=== PATIENT | female | born 1985 | race Caucasian/White ===

== ENCOUNTER → 2016-09-02 | Outpatient (REF) | payer OTHER | LOC: M LAB REF 17:08 | PROVIDERS: ATTEND Advanced Practice Midwife | DX: Z34.82 Encounter for supervision of other normal pregnancy, second trimester (principal) ==

== ENCOUNTER → 2016-09-16 | Outpatient (CLI) | payer OTHER ==
--- NOTE | 2016-09-17 03:09 | REP ---
Clinical: Anatomical evaluation. Comparison: None . Findings: Examination demonstrates a single live intrauterine in the cephalic presentation. motion is identified by technologist. Placenta is noted posteriorly and grade zero without evidence for placenta previa or abruption. Amniotic fluid volume is normal. Cervix measures 2.8 cm in length on Valsalva and appears closed. No evidence for nuchal cord. Gestational age by LMP 18 weeks 6 days with CATHY 02/11/2017 . Gestational age by current measurements 19 weeks 1 day with CATHY 02/09/2017 . FHR equals 160 beats per minute. BPD 4.3 cm 19 weeks 0 days HC 16.5 cm 19 weeks 1 day AC 14.4 cm 19 weeks 5 days FL 3.0 cm 19 weeks 1 day HL 2.9 cm 19 weeks 3 days HC/AC ratio 1.14 Estimated weight 291 grams ( 66th percentile). Anatomical assessment demonstrates normal structures including cranium, choroid plexus, cavum, cerebellum/posterior fossa, facial features, lungs, four-chamber heart/ventricular outflow tracts, diaphragm, stomach, cord insertion/three-vessel cord, kidneys/bladder, spine, and extremities. Impression: 1. Single live intrauterine in cephalic presentation demonstrating appropriate interval growth. 2. Anatomical assessment is complete and normal. 3. Cervix measures 2.8 cm in length on Valsalva. Signed by Elpidio Manrique MD 09/17/2016 03:02 A
== END ==
LOC: M SMT 11:40
PROVIDERS: ATTEND Advanced Practice Midwife
DX: Z34.82 Encounter for supervision of other normal pregnancy, second trimester (principal)

== ENCOUNTER → 2016-11-10 | Outpatient (CLI) | payer OTHER ==
[~2016-11-10] MED LIST: ACET50TA PO; IBUP-1114 PO; PREN1PAK PO
[2016-11-10 13:17] LABS: MEAN CORPUSCULAR HEMOGLOBIN 35.1 pg (27.0-33.0); MEAN CORPUSCULAR HGB CONC 34.1 g/dl (32.0-36.5); MEAN CORPUSCULAR VOLUME 102.8 fl (80.0-96.0); RED CELL DISTRIBUTION WIDTH 15.1 % (11.5-14.5); WHITE BLOOD COUNT 9.6 K/mm3 (4.0-10.0)
== END ==
LOC: M SMT 08:57
PROVIDERS: ATTEND Advanced Practice Midwife
DX: Z34.82 Encounter for supervision of other normal pregnancy, second trimester (principal)

== ENCOUNTER → 2016-11-24 | Outpatient (CLI) | payer OTHER | LOC: M LAB 06:49 | PROVIDERS: ATTEND Advanced Practice Midwife | DX: Z34.82 Encounter for supervision of other normal pregnancy, second trimester (principal) ==

== ENCOUNTER → 2017-01-13 | Outpatient (REF) | payer OTHER | LOC: M LAB REF 16:45 | PROVIDERS: ATTEND Obstetrics & Gynecology | DX: Z34.83 Encounter for supervision of other normal pregnancy, third trimester (principal) ==

== ENCOUNTER 2017-02-06 15:28 | Inpatient (IN) | payer OTHER ==
[2017-02-06] VITALS (20 sets, daily range): BP systolic 116–189; BP diastolic 55–90
[~2017-02-06 15:28] MED LIST changes: -ACET50TA PO; -IBUP-1114 PO
[2017-02-06 18:20] LABS: MEAN CORPUSCULAR HEMOGLOBIN 34.1 pg (27.0-33.0); MEAN CORPUSCULAR VOLUME 100.3 fl (80.0-96.0); PLATELET COUNT, AUTOMATED 132 10^3/uL (150-450); RED CELL DISTRIBUTION WIDTH 15.9 % (11.5-14.5); WHITE BLOOD COUNT 10.1 10^3/uL (4.0-10.0)
[2017-02-06 18:51] LABS: ALT/SGPT 13 U/L (12-78); AST/SGOT 18 U/L (15-37); BILIRUBIN,TOTAL 0.6 MG/DL (0.2-1.0); CREATININE FOR GFR 0.47 MG/DL (0.55-1.02); GLOMERULAR FILTRATION RATE > 60.0 (>60); URIC ACID 4.7 MG/DL (2.6-6.0)
[2017-02-06] MEDS ORDERED: FENTANYL 2MCG/ML ROPIVACAINE 0.2% IN 0.9% NACL 200ML IVBAG As Ordered ONE (21:07)
[2017-02-06] MEDS ORDERED: EPIDURAL COMMENT XX SCH (22:15)
[2017-02-06] MEDS ORDERED: LACTATED RINGER'S 1000 ML IV PRN (22:15)
[2017-02-06] MEDS ORDERED: REFRIGERATOR IV KEYS XX PRN (22:15)
[2017-02-06] MEDS ORDERED: ONDANSETRON 4MG/2ML VIAL (J2405) IV PRN (22:15)
[2017-02-06] MEDS ORDERED: NALOXONE INJ 0.4 MG/1 ML VIAL (J2310) IV PRN (22:15)
[2017-02-06] MEDS ORDERED: FENTANYL/ROPIVACAINE/NACL BAG 200 ML EPIDURAL SCH (22:15)
[2017-02-06] MEDS ORDERED: ePHEDrine SULFATE 25 MG/5 ML(5MG/ML) SYRINGE IV PRN (22:15)
[2017-02-06] MEDS ORDERED: diphenhydrAMINE INJ 50MG/ML VIAL (J1200) IV PRN (22:15)
[2017-02-06] MEDS ORDERED: EPIDURAL/PCA KEYS XX PRN (22:15)
[2017-02-06] MEDS ORDERED: OXYTOCIN 30 UNITS IN 0.9% NaCl 500ML IV BAG (J2590) As Ordered ONE (23:36)
--- NOTE | 2017-02-06 23:37 | HPE ---
DATE OF ADMISSION: 02/06/2017 REASON FOR ADMISSION: Labor. HISTORY OF PRESENT ILLNESS: Ms. Avilez is a 31-year-old 3, para 1, who presents at 39 weeks 3 days estimated gestational age by her last menstrual period confirmed by a first trimester ultrasound with complaints of contractions. She reports contractions that started throughout the day that have increased in frequency and intensity. She denies any vaginal bleeding. No leakage of fluid. She reports active movement. Her course has been unremarkable. She initiated care in her first trimester and has been appropriate throughout. PAST MEDICAL HISTORY: None. PAST SURGICAL HISTORY: 1. She has had a loop electrosurgical excisional procedure (LEEP). 2. Appendectomy. 3. Oral surgery. 4. Cholecystectomy. PAST OBSTETRICAL HISTORY: She is a 3, para 1. She has had one term vaginal delivery. She has proven to 7 pounds 6 ounces. MEDICATIONS: Include vitamins. ALLERGIES: She has no known drug allergies. SOCIAL HISTORY: She denies any alcohol, tobacco, or drug use during her . PHYSICAL EXAMINATION: VITAL SIGNS: Stable. She is afebrile. She has a category 1 heart rate tracing. GENERAL APPEARANCE: Well-appearing in no acute distress. LUNGS: Clear to auscultation bilaterally. CARDIOVASCULAR: Heart is regular rate and rhythm. ABDOMEN: Soft, gravid, nontender. Estimated weight (EFW) 3400 grams. CERVICAL EXAM: She is 4 cm dilated, bulging bag of membranes, 90% effaced. LABORATORIES: Her blood type is B positive. Antibody screen is negative. Rubella is immune. RPR is nonreactive. Hepatitis surface antigen is negative. HIV is negative. Hepatitis C is nonreactive. Chlamydia and gonorrhea screens are negative. She had an elevated 1-hour Glucola of 169, but a normal 3-hour glucose tolerance test. She is group B Streptococcus (GBS) negative. ASSESSMENT: 1. Ms. Avilez is a 31-year-old 3, para 1 at 39 weeks 3 days estimated gestational age here in labor. 2. Reassuring status. PLAN: 1. Admit to labor and delivery. Complete blood count (CBC), RPR, type and screen. 2. Patient is a good candidate for an epidural. 3. I have discussed medication and procedures in labor and delivery. The patient has also been verbally consented for emergency surgery, blood products, anesthesia and desires to proceed with admission. 4. Anticipate spontaneous vaginal delivery.
[2017-02-07] MEDS ORDERED: OXYTOCIN DRIP 30 UNITS in APPROPRIATE DILUENT 1 EA IV SCH (00:39)
[2017-02-07] MEDS ORDERED: METHYLERGONOVINE MALEATE 0.2 MG TAB PO PRN (00:45)
[2017-02-07] MEDS ORDERED: MOM 30ML SUSPENSION UDC PO PRN (00:45)
[2017-02-07] MEDS ORDERED: ACETAMINOPHEN 500 MG TAB PO PRN (00:45)
[2017-02-07] MEDS ORDERED: MEASLES,MUMPS,RUBELLA VACCINE INJ (MMR-II) (90707) SC SCH (00:45)
[2017-02-07] MEDS ORDERED: DOCUSATE SODIUM 100 MG CAP PO PRN (00:45)
[2017-02-07] MEDS ORDERED: DIBUCAINE 1% OINTMENT 30GM TOP PRN (00:45)
[2017-02-07] MEDS ORDERED: ANUSOL HC CREAM 30GM TOP PRN (00:45)
[2017-02-07] MEDS ORDERED: RHOGAM 300 MCG (1500 IU) INJ (J2790) IM SCH (00:45)
--- NOTE | 2017-02-07 01:06 | DN ---
DATE OF DELIVERY: 02/07/2017 TIME OF : 001 GENDER: Male. SCORES: 9 and 10. WEIGHT: 7 pounds 15 ounces or 3600 grams. ANESTHESIA: Epidural. LACERATIONS: Second-degree midline laceration. ESTIMATED BLOOD LOSS: 300 mL. COUNTS: 5 laparotomy sponges accounted for prior to and after delivery. One sharp removed from the delivery field. DELIVERY NOTE: On 02/07/2017, at 0011, Mrs. Avilez, a 31-year-old 3, now para 2 had a spontaneous vaginal delivery of a liveborn male infant, scores 9 and 10, weight was 3600 grams or 7 pounds 15 ounces. Head was delivered occiput anterior (OA) followed by delivery of right anterior shoulder, left posterior shoulder and corpus. Infant was handed to mother with a good cry. Cord was clamped times two, was cut by the father of the baby under my direction. Cord blood was then obtained. Placenta was then drained and delivered grossly intact. A premixed bag of 500 mL of normal saline with 30 units of Pitocin was then bolused along with uterine massage until the uterus was firm. Upon inspection, there was a second-degree midline laceration, which was repaired with 3-0 Vicryl Rapide. On re-inspection, cervix, vagina, and perineum were grossly intact and hemostatic. Mother and baby recovered in stable condition. The couple has decided to name their son Ehsan.
[2017-02-07 03:40] VITALS: BP 128/69
[2017-02-07 06:00] VITALS: BP 117/58
[2017-02-07] MEDS: PRENATAL VITAMINS CHEWABLE TABLET PO SCH (08:25)
[2017-02-07] MEDS: IBUPROFEN 800 MG TAB PO PRN (15:22)
[2017-02-07 18:14] VITALS: BP 115/56
[2017-02-08 06:00] VITALS: BP 118/59
[2017-02-08] MEDS: PRENATAL VITAMINS CHEWABLE TABLET PO SCH (08:59)
[2017-02-08] MEDS: IBUPROFEN 800 MG TAB PO PRN (09:00)
[2017-02-08] MEDS ORDERED: ACET50TA PO (16:57)
[2017-02-08] MEDS ORDERED: IBUP-1114 PO (16:57)
== END 2017-02-08 18:20 | disposition home or self-care (01) | DRG 775 ==
LOC: M LDO 15:28 → M LDI 16:25 → M OBS 02-07 03:40
PROVIDERS: ADMIT Obstetrics & Gynecology; ATTEND Obstetrics & Gynecology
PROC: 10E0XZZ Delivery of Products of Conception, External Approach (ICD-10-PCS; principal; 2017-02-07)
PROC: 0KQM0ZZ Repair Perineum Muscle, Open Approach (ICD-10-PCS; 2017-02-07)
DX: O70.1 Second degree perineal laceration during delivery (principal); Z37.0 Single live birth; Z3A.39 39 weeks gestation of pregnancy

== ENCOUNTER → 2017-11-12 | Outpatient (CLI) | payer OTHER | LOC: M LRY 16:33 | DX: R10.32 Left lower quadrant pain (principal) | CPT/HCPCS: 87086 ==

== ENCOUNTER → 2017-11-12 | Outpatient (REF) | payer OTHER ==
[2017-11-12 22:24] LABS: CHLAMYDIA DNA AMPLIFICATION NEGATIVE (NEGATIVE); GC DNA AMPLIFICATION NEGATIVE (NEGATIVE)
== END ==
LOC: M SFHCLERA 16:15
DX: R10.32 Left lower quadrant pain (principal)

== ENCOUNTER → 2017-12-27 | Outpatient (CLI) | payer OTHER | LOC: M RAD 13:41 | DX: R10.2 Pelvic and perineal pain (principal); N64.4 Mastodynia; Z80.3 Family history of malignant neoplasm of breast | CPT/HCPCS: 76856 ==

== ENCOUNTER → 2018-01-04 | Outpatient (CLI) | payer OTHER | LOC: M RAD 08:34 | DX: R10.2 Pelvic and perineal pain (principal) | CPT/HCPCS: 93976 ==

== ENCOUNTER → 2018-01-17 | Outpatient (CLI) | payer OTHER | LOC: M SMT 14:15 | DX: Z13.79 Encounter for other screening for genetic and chromosomal anomalies (principal) | CPT/HCPCS: 36415 ==

== ENCOUNTER → 2018-07-20 | Outpatient (CLI) | payer OTHER ==
[~2018-07-20] MED LIST changes: +IBUP-1114 PO; +MAPA500T2 PO
--- NOTE | 2018-07-20 11:25 | REP ---
CERVICAL SPINE SERIES: Full cervical spine series performed. There is no fracture or dislocation. Vertebral bodies are normal in height and are well aligned with normal cervical lordosis. There is no prevertebral soft tissue swelling. There is mild narrowing of the C5-6 disc space. I see no radiographic evidence of significant neural foraminal narrowing. IMPRESSION: Mild narrowing C5-6 disc space. No acute abnormalities. Electronically Signed by Rory Lawson MD 07/20/2018 03:12 P
== END ==
LOC: M LRY 10:16
PROVIDERS: ATTEND Physician Assistant
DX: S14.9XXA Injury of unspecified nerves of neck, initial encounter (principal); X58.XXXA Exposure to other specified factors, initial encounter; Y92.9 Unspecified place or not applicable